=== PATIENT | male | born 1935 | race Caucasian/White ===

== ENCOUNTER 2017-01-18 22:53 | Inpatient (IN) | payer MEDICARE, OTHER ==
[~2017-01-18] VITALS: Ht 172.7 cm; Wt 99.0 kg
[~2017-01-18 22:53] MED LIST: AMLO10TA3 PO; ASPI-973 PO; CHOL200047 PO; CLON0.1T PO; EPLE25TA3 PO; FURO40TA4 PO; GLPZ5T PO; KEN1C EXT; LIP40 PO; PRAZ2CAP2 PO; SLO64 PO; ZOLP12.52 PO
[2017-01-18 23:20] VITALS: BP 224/102; PULSE 75; RESP 16; O2SAT 98
--- NOTE | 2017-01-18 23:32 | ED.REPORT ---
HPI-General Illness Date of Service Jan 18, 2017 ED Provider: Dr. Erick Tavera MD A 81 year old male with a history of hypertension, diabetes mellitus and stage III renal failure presents to the ED following a hypertensive episode that began just prior to arrival. Initial BP upon arrival to the ED is 224/102. Patient is asymptomatic except for mild blurry vision. Patient was recently admitted for a tooth extraction at the [facility] and his BP was markedly elevated O stopped, but stabilized prior to discharge. Patient took 25 mg of labetalol (2x regular dose) and clonidine this evening. He denies any diplopia, chest pain, SOB, nausea, diaphoresis or numbness/tingling. Nursing Notes Stated Complaint: HIGH BLOOD PRESSURE Chief Complaint: General Complaint Nursing Notes Reviewed: Yes Allergies: Coded Allergies: morphine (Verified Allergy, Severe, Nausea,Vomiting,Diarrhea, 04/07/13) Opioids - Morphine Analogues (Verified Allergy, Intermediate, Nausea, Vomiting,Diarrhea, 01/18/17) latex (Verified Allergy, Intermediate, skin burning from latex bandaids, ) TAPE (Verified Adverse Reaction, Unknown, 04/14/14) Scheduled Amlodipine (Amlodipine) 10 Mg Tablet 10 MG PO DAILY Amoxicillin (Amoxicillin) 500 Mg Tablet 500 MG PO TID Aspirin (Aspirin) 81 Mg Tablet 81 MG PO HS Atorvastatin (Lipitor) 40 Mg Tablet 40 MG PO HS Cholecalciferol (Vitamin D3) (Vitamin D3) 2,000 Unit Capsule 2,000 UNIT PO DAILY Clonidine (Clonidine) 0.1 Mg Tablet 0.1 MG PO BID Eplerenone (Eplerenone) 25 Mg Tablet 25 MG PO BID Furosemide (Furosemide) 40 Mg Tablet 40 MG PO DAILY Glipizide (Glipizide) 5 Mg Tablet 5 MG PO BID Magnesium Chloride (Slow-Mag) 64 Mg Tablet 64 MG PO DAILY Prazosin (Prazosin) 2 Mg Capsule 6 MG PO BID Triamcinolone Acet (Triamcinolone Acetonide Cream) 1 Applic/0.25 Gm Cr 1 APPLIC EXT BID Scheduled PRN Zolpidem ER (Ambien CR) 12.5 Mg Tab.mphase 5 MG PO HS PRN PRN For Insomnia Miscellaneous Medications Calcitriol (Rocaltrol) 0.25 Mcg Capsule Carvedilol (Carvedilol) 25 Mg Tablet Lisinopril (Lisinopril) 20 Mg Tablet General Time Seen by MD: 23:31 Chief Complaint Other (Hypertensive Episode) Hx Obtained From: Patient Arrived By: Walk-in Sudden in Onset?: No Onset Occurred: Just prior to arrival Symptom Duration: Since onset Associated with: Reports: Vision change, Denies: Chest pain, Diaphoresis, Nausea, Shortness of breath Pertinent Negative: Pt denies other symptoms Recent Healthcare: No recent doctor visit, No recent hospitalization Past Medical History Past Medical History 1. Hypertension 2. Diabetes mellitus 3. Stage III renal failure Past Surgical History 1. CABG 2. Orthopedic surgery 3. Pacemaker Smoking History Former Smoker Social History Other Social History: Good social support, , Local resident Ambulatory Status Independent Review of Systems + hypertension Full Review of Systems Eyes: Reports: Blurred bilateral, Denies: Diplopia Respiratory: Denies: Shortness of breath Cardiovascular: Denies: Chest pain GI: Denies: Nausea Skin: Denies Diaphoresis Neurologic: Denies: Numbness Complete sys rev & neg: except as marked. Physical Exam Vital Signs Vital Signs Date Time Temp Pulse Resp B/P Pulse Ox O2 Delivery O2 Flow Rate FiO2 01/19/17 02:26 36.7 61 15 181/62 98 Room Air 01/19/17 01:01 68 16 190/66 97 Room Air 01/18/17 23:20 36.6 75 16 224/102 98 Room Air Initial VS: Reviewed Neck: Supple, Non-tender, Full range of motion Extremities: Vascular intact, Neuro intact, No swelling, No tenderness Skin: Warm, Dry, No cyanosis Neurologic: Alert, Oriented, Nonfocal Psychiatric: Mood/affect normal, Behavior normal, Normal thought content General/Constitutional: Awake, Alert Behavior: Positive: Anxious Head / Eyes: Atraumatic, Normocephalic, PERRL Respiratory / Chest: Atraumatic, Breath sounds NL, Breath sounds = bilat, No respiratory distress Cardiovascular: Heart rate NL, Regular rhythm, Heart sounds NL Hypertensive (systolic 200's) Abdomen: Atraumatic, Soft, Non-tender Interpretation & Diagnostics Lab Results Interpretation Result Diagram: 01/19/17 0500 01/19/17 0015 Test 01/19/17 00:15 Prothrombin Time 10.6sec (8.1-12.5) Prothromb Time International Ratio 0.99ratio Activated Partial Thromboplast Time 25.6sec (22.8-33.0) Magnesium Level 2.2mg/dL (1.6-2.6) Pro-B-Type Natriuretic Peptide 5431pg/mL (0-486) Thyroid Stimulating Hormone (TSH) 1.770uIU/mL (0.450-4.500) Free Thyroxine 1.61ng/dL (0.82-1.77) ECG Interpretation ECG Interpretation: Sinus Rhythm Rate 61 New flipped T waves laterally - changed from 11/29/15 Inferior infarct Lateral leads involved Time: 00:31 Interpreted by: ED physician X-Ray Chest Interpretation Chest Xray Interpretation: No acute abnormalities Interpretation / Wet Read by: Wet read ED physician Re-Eval/Medical Decision Med Decision/Clinical Course 81-year-old presents with hypertension, essentially asymptomatic. He denies chest pain shortness of breath or any other cardiac type symptoms. However, his blood pressures persistently been over 210, and a workup to evaluate for end organ issues reveals elevated troponin. This is distinctly out of proportion to his moderate elevation of creatinine. No other evidence of end organ damage noted, but need to admit for trending of his troponin, echocardiography this morning to evaluate for wall motion abnormalities, and continued efforts to control his blood pressure. Additional clonidine and observation here as resulted in improvement in his blood pressure. He was also given Nitropaste for presumptive cardiac ischemia, and aspirin. Time of Eval: 00:20 Patient Status: Condition unchanged Re-Evaluation/Progress Note: Patient is re-evaluated. His BP is 226/70 upon recheck. He is informed of his results and diagnosis. Time of Eval: 02:05 Patient Status: Condition improved Re-Evaluation/Progress Note: Patient is informed of the plan to admit. All questions about the intended treatment plan are addressed. Consultation : Referral / Consult Name: Natanael Koo MD Consulted With: Hospitalist Call Returned at: 02:34 Film Reader: Will see patient, Agrees with eval, Agrees with plan, Accepts admit Counseled Regarding: Diagnosis, Lab results, Need for admission Discharge & Departure Primary Impression: Non-STEMI (non-ST elevated myocardial infarction) Additional Impression: Hypertensive emergency Disposition: ADMITTED TO HOSPITAL Discharge Condition All VS Reviewed: Yes Condition: Stable Referrals: Alexis Godoy MD (PCP) Scribe Attestation Portions of this note were transcribed by Tl Escalante. IDr. Tavera personally performed the history, physical exam and medical decision-making; I reviewed and confirmed the accuracy of the information in the transcribed note. copies to: Alexis Godoy MD, Christopher W MD Jan 18, 2017 23:32 TL ESCALANTE Jan 18, 2017 23:39 Troponin T 0.101ug/L (0.0-0.011) Pro-B-Type Natriuretic Peptide 5431pg/mL (0-486) Total Protein 6.5g/dL (6.4-8.4) Albumin 4.0g/dL (3.4-5.0) ECG Interpretation ECG Interpretation: Sinus Rhythm Rate 61 New flipped T waves laterally - changed from 16 Inferior infarct Lateral leads involved Time: 00:31 Interpreted by: ED physician X-Ray Chest Interpretation Chest Xray Interpretation: No acute abnormalities Interpretation / Wet Read by: Wet read ED physician Re-Eval/Medical Decision Time of Eval: 00:20 Patient Status: Condition unchanged Re-Evaluation/Progress Note: Patient is re-evaluated. His BP is 226/70 upon recheck. He is informed of his results and diagnosis. Time of Eval: 02:05 Patient Status: Condition improved Re-Evaluation/Progress Note: Patient is informed of the plan to admit. All questions about the intended treatment plan are addressed. Consultation : Referral / Consult Name: Natanael Koo MD Consulted With: Hospitalist Call Returned at: 02:34 Film Reader: Will see patient, Agrees with eval, Agrees with plan, Accepts admit Counseled Regarding: Diagnosis, Lab results, Need for admission Discharge & Departure Primary Impression: Non-STEMI (non-ST elevated myocardial infarction) Additional Impression: Hypertensive emergency Disposition: ADMITTED TO HOSPITAL Discharge Condition All VS Reviewed: Yes Condition: Stable Referrals: Alexis Godoy MD (PCP) Scribe Attestation Portions of this note were transcribed by Tl Escalante. I, Dr. Tavera personally performed the history, physical exam and medical decision-making; I reviewed and confirmed the accuracy of the information in the transcribed note. copies to: Alexis Godoy MD, Christopher W MD Jan 18, 2017 23:32 TL ESCALANTE Jan 18, 2017 23:39
[2017-01-19] VITALS (16 sets, daily range): BP systolic 153–235; BP diastolic 45–92; PULSE 60–91; RESP 15–18; O2SAT 95–98
[2017-01-19 00:24] LABS: BASOPHILS % (AUTO) 0.2 % (0-3); Mean Corpuscular Volume 90.2 fL (81-100)
[2017-01-19 00:52] LABS: INR 0.99 ratio
[2017-01-19 00:55] LABS: EOSINOPHILS % (AUTO) 2.3 % (0-5); MONOCYTES % (AUTO) 8.9 % (4-12); Mean Corpuscular Hemoglobin 32.9 pg (27.0-35.0); NEUTROPHILS % (AUTO) 65.8 % (40-74); Platelet Count 204 bil/L (150-400)
[2017-01-19 01:14] LABS: Magnesium 2.2 mg/dL (1.6-2.6); TROPONIN T 0.101 ug/L (0.0-0.011)
[2017-01-19] MEDS ORDERED: Nitroglycerin 2% 1 Gm Ointment TOPICAL SCH (02:00)
[2017-01-19] MEDS ORDERED: Alum-Mag Hydrox-Simeth 30 mL Suspension PO PRN ×2 (03:00)
[2017-01-19] MEDS ORDERED: Polyethylene Glycol (PEG) 17 Gm Powder PO PRN (03:00)
[2017-01-19] MEDS ORDERED: Ondansetron 2 mg/mL 2 mL Inj IVPUSH PRN ×2 (03:00)
[2017-01-19] MEDS ORDERED: Lactated Ringer's 1,000 ML IV SCH (03:00)
[2017-01-19] MEDS ORDERED: AMOX500T2 PO (04:00)
[2017-01-19] MEDS ORDERED: CALC0.257 ORAL (04:00)
[2017-01-19] MEDS ORDERED: LISI-567 (04:00)
[2017-01-19] MEDS ORDERED: CARV25TA2 ORAL (04:00)
[2017-01-19] MEDS ORDERED: Glucose 40% Oral Gel 15 Gm Tube PO PRN (04:15)
[2017-01-19] MEDS ORDERED: Labetalol 5 mg/mL 4 mL Inj IVPUSH ONE (04:50)
--- NOTE | 2017-01-19 05:02 | PCM.HPMED ---
Subjective Date of Service Jan 19, 2017 Primary Provider: Admitting Physician: Natanael Koo MD Primary Care Physician: Alexis Godoy MD Attending Physician: Natanael Koo MD Chief Complaint: Patient is a 81-year-old male with a medical history significant for diabetes type II, hypertension, CAD status post CABG, sick sinus syndrome with dual- chamber pacemaker, diastolic heart failure stage II, and chronic kidney disease stage III presents with elevated blood pressure. History of Present Illness: Per patient, reports asymptomatic with blood pressure in the 220s/100s yesterday morning and continue elevated in the ED. He had visited urgent care this morning which advised him to take an extra dose of 12.5 mg carvedilol and sent home. However due to continue elevated systolic blood pressure, patient decided to visit the ED. Patient denies any chest pain, dizziness, lightheadedness, shortness of breath, or nausea/vomiting. He further denies any unilateral weakness. Patient denies medication noncompliance, he religiously takes his medication as scheduled. No change in diet. Most recently, he had dental implant on 01/16/2017 required general sedation. Patient states that he has adverse reaction to general anesthesia. He was placed in the medical ICU in the [facility] overnight for uncontrolled hypertension. Blood pressure since last Friday began to slowly increase. Patient reports having similar hypertensive episode in the past with every surgery under anesthesiology. Patient believes that he has significant adverse reaction to the anesthesia given. In the ED, blood pressure was measured to 124/102. CBC remarkable only for hemoglobin and hematocrit 12.4/34 stable chronic, CMP remarkable for BUN/ creatinine 46/2.54, baseline creatinine is 2.3-2.4. Troponin T 0.101 elevated. Patient was given Nitro-Bid in addition to clonidine 0.2 mg. Review of Systems: A comprehensive review of systems was conducted with the patient and found to be negative except as above in the History of Present Illness. Allergies Coded Allergies: morphine (Verified Allergy, Severe, Nausea,Vomiting,Diarrhea, 04/07/13) Opioids - Morphine Analogues (Verified Allergy, Intermediate, Nausea, Vomiting,Diarrhea, 01/18/17) latex (Verified Allergy, Intermediate, skin burning from latex bandaids, ) TAPE (Verified Adverse Reaction, Unknown, 04/14/14) Home Medications Per chart, will need to verify by reconciliation nurse Amoxicillin 500 mg by mouth 3 times a day Aspirin 81 mg daily Lipitor 40 mg nightly Calcitrol 0.25 MCG daily Carvedilol 12.5 mg twice a day Vitamin D3 2000 units daily Clonidine 0.1 mg twice a day Furosemide 40 mg daily Glipizide 5 mg twice a day right ear Lisinopril 20 mg daily Magnesium chloride 64 mg daily prazosin 4 mg twice a day Ambien 5 mg nightly when necessary PMH Dyslipidemia Diabetes type II Uncontrolled hypertension Diastolic heart failure stage II History of stroke History of coronary artery disease status post CABG Chronic kidney disease stage 3 Sick sinus syndrome status post dual-chamber pacemaker History of congestive heart failure Peripheral vascular disease Coronary artery disease status post stenting History of atrial fibrillation postop Prasad GERD nerve palsy left eye Surgical History Laminectomy L3-L4 Right knee surgery Right rotator cuff surgery Dual-chamber pacemaker implantation CABG 3 Family History Father with depression Mother with multiple sclerosis Sibling with strokes Social History Hx Alcohol Use: Yes (rare occassion) Hx Substance Use: No Hx Tobacco Use: Yes Smoking Status: Former Smoker Exam Vital Signs Vital Sign - Last Date Time Temp Pulse Resp B/P Pulse Ox O2 Delivery O2 Flow Rate FiO2 01/19/17 03:09 36.7 60 15 193/60 97 Room Air Exam General: No acute distress, appropriately interactive HEENT: Normocephalic, atraumatic. PERRLA, Anicteric sclerae, moist conjunctivae. Neck: No JVD, No bruits. No lymphadenopathy or thyromegaly. Cardiovascular: Regular rate and rhythm with no murmurs, rubs, or gallops appreciated Pulmonary: b/l air sound with no crackles, wheezes, or rhonchi. no use of accessory muscles. Abdomen: +Bowel sound, Soft, nontender, nondistended. Extremities: No clubbing or cyanosis, no lymphedema, no b/l lower leg edema Skin: Normal temperature, turgor, and texture; no rash. No visualized skin ulcer. Neurological: CN II-VII grossly intact, moving equally on all 4 extremities Psychiatric: Normal mood and affect. AOx3 Lab and Diagnostics Result Diagram: 01/19/171401/19/1714 Assessment & Plan Patient is a 81-year-old male with a medical history significant for diabetes type II, hypertension, 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 Hypertensive emergency - Clonidine 0.2 mg and Nitropaste given by ED - Restart home carvedilol, clonidine, prazosin, holding lisinopril - Goal maintain SBP 155-165 mmHg within the first 8 hours Elevated troponin of unknown significance - T wave inversion noted, Troponin T 1.01 - Possible and NSTEMI due to severe hypertension - Trending troponin - Echocardiogram ordered ED - Continue carvedilol, ASA 81 mg, and atorvastatin Chronic kidney disease - Baseline creatinine ~2.3 - UA ordered - Holding lisinopril as GFR 26 Chronic condition Diabetes type II [id number] - A1c ordered - Low sliding scale Insulin lispro Dyslipidemia - Restart atorvastatin - Lipid panel ordered Normocytic anemia - Stool guaiac ordered History of dental implant - Recently went through oral surgery - Placed on amoxicillin day 4 , presumably prophylaxis CODE STATUS: Full code DVT prophylaxis: Heparin Antinausea medication when necessary Bowel regimen when necessary Patient Status: Patient is admitted under inpatient status with expected length of stay GREATER than 2 midnights due to severity of presenting symptoms, risk of adverse event, and complexity of treatment plan. GI Prophylaxis: Not indicated VTE Prophylaxis: Sub-Q Enoxaparin Resuscitation Status: CPR: Attempt Resuscitation Attending Statement The patient was seen and examined together with Dr. Aguilar on 01/19 and I agree with the history, exam and plan as outlined in the note above. Roberto Aguilar DO Jan 19, 2017 03:21 Natanael Koo MD Jan 19, 2017 19:57
[2017-01-19 05:03] LABS: BASOPHILS % (AUTO) 0.4 % (0-3); EOSINOPHILS % (AUTO) 3.1 % (0-5); MONOCYTES % (AUTO) 9.1 % (4-12); Mean Corpuscular Hemoglobin 32.6 pg (27.0-35.0); Mean Corpuscular Volume 90.3 fL (81-100); NEUTROPHILS % (AUTO) 58.3 % (40-74); Platelet Count 189 bil/L (150-400)
--- NOTE | 2017-01-19 05:24 | NUR ---
Admit Patient admitted to [facility] 2018 at 0315. Patient denies chest pain and shortness of breath. Placed on telemetry: 100% a-paced. Dr. Aguilar to bedside to assess patient; goal BP around 170 systolic. Admit documentation and med reconciliation completed.
[2017-01-19 05:43] LABS: APPEARANCE,URINE CLEAR (CLEAR,HAZY); COLOR,URINE YELLOW (YELLOW); OCCULT BLOOD,URINE SMALL (NEGATIVE); UROBILINOGEN,URINE NORMAL (NORMAL)
--- NOTE | 2017-01-19 07:42 | DRSVH ---
PROCEDURE: X-RAY CHEST ONE VIEW, PORTABLE ([id number]) INDICATIONS: 81-year-old male with hypertension. TECHNIQUE: One view of the chest was acquired. COMPARISON: [facility], CR, CHEST 1 VIEW, 04/11/2016, 16:13. [facility], CR, XR CH EST 2VW, 11/29/2015, 7:07. [facility], CR, XR CHEST 1VW (PORTABLE), 11/28/2015, 13:57. FINDINGS: Surgical changes and devices: Left chest wall pacemaker is again noted. Patient is status post shahid ry artery bypass grafting. Lungs and pleura: No pleural effusions or pneumothorax. Lungs are clear. Mediastinum: Mediastinal contours appear normal. Heart size is normal. There is aortic atheroscler osis. Bones and chest wall: No suspicious bony lesions. Overlying soft tissues appear unremarkable. IMPRESSION: No acute cardiopulmonary disease. Dictated by: Werner Hall M.D. on 01/19/2017 at 7:39 Approved by: Werner Hall M.D. on 01/19/2017 at 7:40
[2017-01-19] MEDS: Insulin LISPRO 300 Unit/3 mL Inj SUBQ SCH ×4 (08:00→21:31)
[2017-01-19] MEDS: cloNIDine 0.1 mg Tablet PO SCH ×2 (09:59→20:39)
[2017-01-19] MEDS: Heparin 5,000 Unit/mL Inj SUBQ SCH ×2 (09:59→17:58)
[2017-01-19] MEDS ORDERED: ACET500C49 PO (11:00)
--- NOTE | 2017-01-19 14:47 | NUR ---
Social Work: Assessment D&A: See initial assessment. FUEL DISTRIBUTION SYSTEM OPERATOR reviewed EMR, which states pt is at [facility] with a hypertensive emergency and elevated trop. Pt primary insurance is Medicare with a Blue Cross Blue Shield supplement and / [employer] supplement, per pt. Pt PCP is Alexis Godoy MD. Readmit risk score is not available. Pt prefers to remain at [facility] for this admission and declines FUEL DISTRIBUTION SYSTEM OPERATOR [facility] of [facility]. FUEL DISTRIBUTION SYSTEM OPERATOR met with the pt and at bedside and explained FUEL DISTRIBUTION SYSTEM OPERATOR role. Pt reports that he resides at home with his in a two-story home with an elevator. Pt's , Adelita ([phone]) assists pt with ADL's. Pt reports that his primary contact and DPOA is Adelita, though he cannot locate the requisite paperwork; FUEL DISTRIBUTION SYSTEM OPERATOR provided pt with these documents to complete. Pt drives POV; he currently utilizes a walker and a motorized scooter. Pt reports hx with [facility] and [facility] he does not anticipate needing wither of these at d/c Pt does not utilize any community services at this time. Pt's family to provide transport home at discharge. No SW needs apparent; FUEL DISTRIBUTION SYSTEM OPERATOR will continue to follow. P: Pt is likely to discharge home with family via POV. MIRIAM Vazquez Addendum: 01/19/17 at 1453 by NISSA HANEY SS Amended: Links added.
--- NOTE | 2017-01-19 15:27 | NUR ---
Multidisciplinary Communication [id number] - Discussed his care with Dr. Cummings, Dr. Scott, and the rest of the multidisciplinary care team during morning rounds. Asked if he needed to be on an NPO diet as that is what was ordered. Dr. Scott said that he could eat a heart health/ADA diet. Also, asked if his one time dose of Labetalol could be changed to prn. The MDs said they would look into it. 1100 - Dr. Scott and Dr. Cummings came in the room to assess the patient. Noted that his Medication Rec. was incorrect. It was corrected via patient interview and medication list. The one medication that was not added was a mouth wash he has been using since his oral surgery for which he could not remember the name. His family will bring it it for him so that it can be added to his med. rec. and given to him . [id number] - Paged Dr. Scott who called back and was informed that the medication rec. was completed. Informed him that the family was asking if he would have any more troponin lab draws. Told him that none had been ordered after 0500 today. He said he would order a troponin lab draw which was obtained this afternoon. Care continues. Addendum: 01/19/17 at 1935 by SHANI CLAROS RN [id number] - Paged Dr. Scott about his troponin being 0.089. He went and talked to the family a couple hours later to discuss his troponin levels. Care continues.
--- NOTE | 2017-01-19 16:34 | PCM.PNMED ---
Subjective Date of Service Jan 19, 2017 Subjective 81-year-old man with coronary disease, hypertension and type II diabetes mellitus presents with acute uncontrolled hypertension. Patient states he feels at baseline today. He reports that blood pressure rises uncontrollably every time he has a surgical or medical procedure. He was observed for 24 hours after his dental procedure and discharge with good blood pressure but recurrence 1 day later unexplained. No symptoms of headache diplopia, dyspnea, chest pain or confusion. Family at bedside concerned about his troponins. Exam Vital Signs Vital Sign - Last Date Time Temp Pulse Resp B/P Pulse Ox O2 Delivery O2 Flow Rate FiO2 01/19/17 13:17 36.9 72 18 159/45 96 Room Air Intake and Output 01/18/17 01/18/17 01/19/17 Cumulative From/Thru 15:00 23:00 07:00 01/19/17 04:38 - 01/19/17 05:39 Intake Total 100 ml 100 ml Output Total 500 ml 500 ml Balance -400 ml -400 ml Intake Oral 100 ml 100 ml Output Urine Total 500 ml 500 ml # Bowel Movements 0 0 Exam General: Mildly obese elderly man in no acute distress HEENT: sclerae anicteric, oral mucosa moist Neck: no JVD Chest: clear to auscultation Cardiac: S1S2, regular, no murmur Abdomen: BS normal, non-tender Extremities: no edema Neuro: A&O, cranial nerves symmetric, motor strength 5/5, coordination normal IVs and Medications Medications Reviewed: Medications were reviewed in detail Lab and Diagnostics Result Diagram: 01/19/17 0500 01/19/17 0500 Assessment & Plan Patient is a 81-year-old male with a medical history significant for diabetes type II, hypertension, 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 Acute active problems: Hypertensive emergency, acute present on admission. Blood pressure medications have been recently adjusted by both learning center coordinator and business services specialist sales. We will try to avoid significant further changes. - Restart home carvedilol, clonidine, prazosin, holding lisinopril - Goal maintain SBP 155-165 mmHg within the first 8 hours Elevated troponin of unknown significance. Temporal sequence does not suggest acute myocardial ischemia. Likely effective renal failure with some amount of demand ischemia from acute hypertension. T wave inversion noted on EKG, Troponins T 0.10, 0.086, 0.089. - Echocardiogram pending - Continue carvedilol, ASA 81 mg, and atorvastatin - Repeat EKG in a.m. Chronic kidney disease - Baseline creatinine ~2.3 - UA ordered - Holding lisinopril as GFR 26 Chronic condition Diabetes type II [id number] - A1c ordered - Low sliding scale Insulin lispro Dyslipidemia - Restart atorvastatin - Lipid panel ordered Normocytic anemia - Stool guaiac ordered History of dental implant - Recently went through oral surgery - Continue on previously prescribed amoxicillin day CODE STATUS: Full code DVT prophylaxis: Heparin Antinausea medication when necessary Bowel regimen when necessary Patient Status: Patient is admitted under inpatient status with expected length of stay GREATER than 2 midnights due to severity of presenting symptoms, risk of adverse event, and complexity of treatment plan. GI Prophylaxis: Not indicated VTE Prophylaxis: Sub-Q Enoxaparin Resuscitation Status: CPR: Attempt Resuscitation Time spent 35 minutes Butch Scott MD Jan 19, 2017 15:09
[2017-01-19] MEDS ORDERED: CHLO118L3 ORAL (17:55)
[2017-01-19] MEDS ORDERED: KTC2C15 TP (18:05)
[2017-01-19] MEDS ORDERED: CLOT60CR TOPICAL (18:05)
--- NOTE | 2017-01-19 18:12 | DRSVH ---
[facility] [address] [place] [address] Echocardiogram Report Name: VLAD ZALDIVAR LStudy Date: 01/19/2017 Height: 68 in Hospital Exam Location: [facility] Weight: 227 lb Gender: Male BSA: 2.2 m2 : 1935 Age: 81 yrs BP: 179/87 mmHg Reason For Study: Possible ND Ordering Physician: Performed By: Delaney Otto Referring Physician: Stephanie Godoy Interpretation Summary The left ventricle is normal in size. There is moderate concentric left ventricular hypertrophy. There are no focal wall motion abnormalities. The ejection fraction is estimated to be 70-75%. There is a pacemaker lead in the right ventricle. The right ventricular systolic pressure is estimated at 29 mmHg assuming a right atrial pressure of 3 mm Hg. No other echocardiographic abnormalities seen. Compared to the prior echo report on 02/20/2016, there is no significant change. Procedure: A two-dimensional transthoracic echocardiogram with color flow and Doppler was performed. Comparison is made with the echocardiogram of 02/20/2016. The study quality was technically adequate. The patient was in normal sinus rhythm during the exam. Left Ventricle: Proximal septal thickening is noted. Left ventricular wall thickness is mild-moderately increased. The left ventricle is normal in size. There is moderate concentric left ventricular hypertrophy. Left ventricular systolic function is normal. The ejection fraction is estimated to be 70-75%. There are no focal wall motion abnormalities. Right Ventricle: There is a pacemaker lead in the right ventricle. The right ventricle is normal in size and function. Atria: The left atrium is moderately dilated. Right atrial size is normal. There is no Doppler evidence for an interatrial shunt. Mitral Valve: The mitral valve is normal in structure and function. There is mild mitral regurgitation. Aortic Valve: The aortic valve opens well. The aortic valve is slightly calcified. There is mild aortic valve sclerosis. There is trace aortic regurgitation. Tricuspid Valve: The tricuspid valve is normal in structure and function. There is a trace or physiologic amount of tricuspid regurgitation. The right ventricular systolic pressure is estimated at 29 mmHg assuming a right atrial pressure of 3 mm Hg. Pulmonic Valve: The pulmonic valve is normal in structure and function. There is a trace or physiologic amount of pulmonic regurgitation. Great Vessels: The aortic root is at the upper limits of normal in size. The ascending aorta is mildly enlarged. The aortic arch is normal in size. The IVC is of normal diameter and collapses greater than 50% with a sniff. This suggests a low right atrial pressure of 3 mm Hg. Pericardium/ Pleura There is no pericardial effusion. There is no pleural effusion. MMode/2D Measurements & Calculations LVIDd: 4.5 cm RA long axis LVOT diam: 2.4 cm LVIDs: 3.1 cm LA A2 area: 26.1 cm Ao root diam FS: 32.0 % LA A4 area: 23.8 cm RA area EPSS: 0.88 cm LA length (vol) Aortic Jxn: 3.0 cm IVSd: 1.3 cm : 16.8 cm asc Aorta Diam LVPWd: 1.3 cm LA vol: 94.3 ml RA vol LA vol index : 48.7 ml Ao Arch Diam (Prox RA Trans): 2.9 cm : 22.6 mm2 IVC diam: 1.6 cm LV luong. diameter/BSA LV sys. diameter/BSA RVD1 (basal) TAPSE: 1.4 cm (cm/m^2): 2.1 (cm/m^2): 1.4 Doppler Measurements & Calculations Ao V2 max MV E max smooth MV E/A: 1.0 TR max smooth : 177.7 cm/sec : 85.9 cm/sec Med Peak E' Smooth : 252.4 cm/sec Ao max PG MV A max smooth TR max PG : 12.6 mmHg : 82.8 cm/sec E/E' med: 17.0 : 25.5 mmHg Ao mean PG MV P1/2t: 56.9 msec Lat Peak E' Smooth PA V2 max : 92.7 cm/sec LVOT Max Smooth E/E' lat: 8.8 PA mean PG : 85.3 cm/sec E/e' average PA Accel Time MADDIE(I,D): 2.5 cm : 0.10 sec sev ratio: 0.55 AI P1/2t : 440.8 msec AI dec slope : 269.1 cm/s2c MV dec time MV P1/2t max smooth Ao V2 mean LV V1 max PG : 0.19 sec : 126.4 cm/sec MVA(P1/2t): 3.9 cm2 Ao V2 VTI: 41.9 cmLV V1 VTI MADDIE(V,D): 2.2 cm2 : 23.2 cm PA V2 mean MADDIE indexed to BSA : 59.5 cm/sec (cm^2/m^2): 1.2 Reading Physician:06:11 PM
[2017-01-19] MEDS: Labetalol 5 mg/mL 4 mL Inj IVPUSH PRN ×2 (21:15→21:26)
[2017-01-19] MEDS ORDERED: cloNIDine 0.1 mg Tablet PO ONE ×2 (21:45→23:40)
--- NOTE | 2017-01-19 22:44 | NUR ---
HTN: pt's blood pressure elevated at 241/101, hospitalist Dr. Briones notified, pt. given evening meds, iv labetolol tried, 10mg, repeated with 10mg 15 min later, bp was 235/92, 232/83, 231/85, 217/79. hospitalist ordered one time dose of 0.2mg clonidine, will reassess, pt. asymptomatic. Addendum: 01/20/17 at 0351 by RONALD GLEASON RN bp slowly coming down after clonidine, now 214/72
[2017-01-20] VITALS (13 sets, daily range): BP systolic 179–241; BP diastolic 72–87; PULSE 58–74; RESP 16; O2SAT 95–98
[2017-01-20] MEDS: Heparin 5,000 Unit/mL Inj SUBQ SCH ×3 (00:03→17:06)
[2017-01-20] MEDS ORDERED: cloNIDine 0.1 mg Tablet PO ONE (01:55)
[2017-01-20] MEDS ORDERED: LORazepam 0.5 mg Tablet PO ONE (01:55)
[2017-01-20] MEDS: cloNIDine 0.1 mg Tablet PO SCH ×2 (08:28→20:20)
[2017-01-20] MEDS: Insulin LISPRO 300 Unit/3 mL Inj SUBQ SCH ×4 (08:31→21:38)
--- NOTE | 2017-01-20 16:14 | PCM.PNMED ---
Subjective Date of Service Jan 20, 2017 Subjective 81-year-old man with coronary disease, hypertension and type II diabetes mellitus presents with acute uncontrolled hypertension. Feels generally well. Mild headache. Very poor sleep due to frequent interruptions for blood pressure monitoring last night. No chest pain or dyspnea. 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 Exam Vital Signs Vital Sign - Last Date Time Temp Pulse Resp B/P Pulse Ox O2 Delivery O2 Flow Rate FiO2 01/20/17 12:31 36.6 61 16 181/73 95 Room Air Intake and Output 01/19/17 01/19/17 01/20/17 Cumulative From/Thru 15:00 23:00 07:00 01/19/17 04:38 - 01/20/17 05:16 Intake Total 450 ml 550 ml Output Total 1925 ml 2425 ml Balance -1475 ml -1875 ml Intake Oral 450 ml 550 ml Output Urine Total 1925 ml 2425 ml # Bowel Movements 0 Exam General: Mildly obese elderly man in no acute distress HEENT: sclerae anicteric, oral mucosa moist Neck: no JVD Chest: clear to auscultation Cardiac: S1S2, regular, no murmur Abdomen: BS normal, non-tender; episodic right upper quadrant abdominal wall twitching Extremities: no edema Neuro: A&O, cranial nerves symmetric, motor strength 5/5, coordination clifford Lab and Diagnostics Result Diagram: 01/19/17 0500 01/19/17 0500 Assessment & Plan Patient is a 81-year-old male with a medical history significant for diabetes type II, hypertension, 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 Acute active problems: # Hypertensive emergency, acute present on admission. Blood pressure medications have been recently adjusted by both donor relations officer and mapping technician. Had recurrent severe hypertension despite continuing his prior medications. Recently treated with amlodipine but it was discontinued. He has not been on lisinopril due to concerns about his chronic kidney disease. - Resumed home carvedilol 25 mg twice a day, clonidine 0.2 mg twice a day, prazosin, - Add amlodipine, and lisinopril - Goal maintain SBP 165 mmHg # Elevated troponin of unknown significance. Temporal sequence does not suggest acute myocardial ischemia. Likely effective renal failure with some amount of demand ischemia from acute hypertension. T wave inversion noted on EKG, Troponins T 0.10, 0.086, 0.089. LVEF 70%, no focal akinesis - Continue carvedilol, ASA 81 mg, and atorvastatin #Chronic kidney disease - Baseline creatinine ~2.3 - UA ordered -Repeat BMP in a.m. Chronic condition Diabetes type II [id number] - A1c ordered - Low sliding scale Insulin lispro Dyslipidemia - Restart atorvastatin - Lipid panel ordered Normocytic anemia - Stool guaiac ordered History of dental implant - Recently went through oral surgery - Continue on previously prescribed amoxicillin day CODE STATUS: Full code DVT prophylaxis: Heparin Antinausea medication when necessary Bowel regimen when necessary Patient Status: Anticipate discharge to home 01/21 with blood pressure under control with reasonable oral regimen GI Prophylaxis: Not indicated VTE Prophylaxis: Sub-Q Enoxaparin Resuscitation Status: CPR: Attempt Resuscitation Time spent 35 minutes Butch Scott MD Jan 20, 2017 16:14
--- NOTE | 2017-01-20 19:20 | NUR ---
Hypertension 818 - Called Dr. Scott per his request and let him know that the patient's blood pressure was 204/87 before his morning medication. 929 - Discussed his care with Dr. Scott, Dr. Cummings, and the rest of the multidisciplinary care team during morning rounds. Discussed his blood pressure, his abdominal muscle twitching, that the computer technical specialist noted he was not A-paced on his EKG this morning, and that he was requesting to speak to Dr. Wilson. 1099 - Notified Dr. Scott of his blood pressure of 190/73 after his morning medications. No new orders. 1712 - His blood pressure was in the 200s systolic. Called the Pharmacy to send up IV Labetalol. Gave him the one time dose of by mouth Lisinopril. 1830 - Paged Dr. Scott and notified him that his blood pressure was now 179/80s. He said to hold off from giving any IV Labetalol and that he would order some by mouth PRN medications. film processing shift supervisor notified. Care continues.
[2017-01-21] VITALS (9 sets, daily range): BP systolic 133–223; BP diastolic 63–84; PULSE 60–65; RESP 16–18; O2SAT 95–97
[2017-01-21] MEDS: Heparin 5,000 Unit/mL Inj SUBQ SCH ×2 (00:32→08:42)
--- NOTE | 2017-01-21 06:10 | NUR ---
P) Cardiac Pt.'s 419 BP was 205/79, given hydralizine PO, an hour later it was 196/68, was going to give labetelol IV but pt. stated he has had it previously this visit and it did not help, and he reacted to it with strange feeling sliding over his head. Pt. got up and voided in bathroom, returned and sat down and his blood pressure was 156/67 without any further treatment. I) Discussed possible correlation between pressure on kidneys and BP, pt. will discuss this with his DrRinku in the AM. E) Currently up in chair, cardiac rhythm A-paced in 60's, denies pain.
[2017-01-21] MEDS: Insulin LISPRO 300 Unit/3 mL Inj SUBQ SCH (08:39)
[2017-01-21] MEDS: cloNIDine 0.1 mg Tablet PO SCH (09:44)
[2017-01-21] MEDS ORDERED: Potassium Chloride 20 mEq SR Tablet PO ONE (11:20)
[2017-01-21] MEDS ORDERED: CARV25TA2 PO (11:21)
[2017-01-21] MEDS ORDERED: CLON0.2T PO (11:21)
[2017-01-21] MEDS ORDERED: AMLO10TA3 PO (11:21)
--- NOTE | 2017-01-21 11:25 | PCM.DIMED ---
Discharge Instructions Date of Service Jan 21, 2017 Dates of Hospitalization Jan 19, 2017 at 02:44 Discharge Diagnosis Discharge Diagnosis Accelerated hypertension; Chronic kidney disease; Troponin elevated; Diabetes mellitus, type II. Medication Instructions Additional med instructions Medications have been adjusted as specified in the medication list. Prescription for amlodipine is sent to your [facility] pharmacy. You have indicated that you have the higher doses of other medicines including clonidine , carvedilol, and lisinopril. Diet Discharge Diet: Diabetic, Other (reduce dietary sodium as much as possible) Activity Discharge Activity: No restrictions Call your provider Call your provider for: Other (excessive blood pressure) Patient Instructions Follow-up plan Follow-up with and the [place] clinic at previously scheduled appointments or as needed. Follow-up Provider: Jade Wilson MD Follow-up with PCP in: 2 weeks Provider: Ale Leal MD Follow-up in: 2 weeks Mid-level Provider (F9): Alexis Godoy MD Follow-up with Mid-level in: Other (as needed) Butch Scott MD Jan 21, 2017 11:25
--- NOTE | 2017-01-21 12:36 | NUR ---
Discharge 0855 - Paged Yellow Team Hospitalist about his blood pressure and medications. Some new hypertensive medications were ordered as well as some of his home doses increased. When taking his blood pressure while sitting he was 136/64. 0910 - Dr. Scott said to go a head and still give all of the ordered medications. 0950 - Discussed his care with Dr. Scott, Dr. Cummings, and the rest of the multidisciplinary care team during morning rounds. Discussed his potassium of 3.3 and notified them that the patient stated he had a bad reaction to Spironolactone. This medication had been one of the new ones ordered this morning. Dr. Scott acknowledged the potassium level and ordered a by mouth potassium replacement. He said to go ahead and hold the Spironolactone. 1236 - He discharged at this time. His IV was discontinued intact, his telemetry was discontinued, and his vitals were taken. Discussed and gave him the discharge paperwork (instructions, one prescriptions, and care notes). His questions were answered. He took all his belongings with him. He was transported via wheelchair by the [facility] to the outside of the hospital. He and his thanked staff for their care.
--- NOTE | 2017-01-21 13:00 | NUR ---
Discharge Patient discharged at 1236. His vital sign was BP 133/63, P 65, R 18, T 63.6 oxygen 97% RA. Patient denied having a pain. His peripheral IV removed intact. His medication prescription electronic sent to [facility] per patient preference and hard copy also given. Discharge teaching had been done answered his question. Patient was transferred by SENIOR TECHNICAL EDITOR in wheelchair to his car.
--- NOTE | 2017-01-21 16:24 | PCM.DC.MED ---
Discharge Summary Date of Service Jan 21, 2017 Dates of Hospitalization Date of Hospital Admission Jan 19, 2017 at 02:44 Date of Discharge: Jan 21, 2017 Providers: Admitting Physician: Natanael Koo MD Primary Care Physician: Alexis Godoy MD Attending Physician: Aleksandar Sellers MD Diagnosis at Time of Discharge Diagnosis at Time of Discharge Accelerated hypertension; Chronic kidney disease; Troponin elevated; Diabetes mellitus, type II. Brief History History of Present Illness (per admission note): Patient is a 81-year-old male with a medical history significant for diabetes type II, hypertension, CAD status post CABG, sick sinus syndrome with dual- chamber pacemaker, diastolic heart failure stage II, and chronic kidney disease stage III presents with elevated blood pressure. 4 days prior to admission he underwent dental procedure at [facility] and was observed one additional day due to elevated blood pressure. He was discharged home but notes 220s/100s yesterday morning. He had visited urgent care this morning which advised him to take an extra dose of 12.5 mg carvedilol and sent home. However due to continue elevated systolic blood pressure, patient decided to visit the ED. Patient denies any chest pain, dizziness, lightheadedness, shortness of breath, or nausea/vomiting. He further denies any unilateral weakness. Patient denies medication noncompliance, he religiously takes his medication as scheduled. No change in diet. Most recently, he had dental implant on 01/16/2017 required general sedation. Patient states that he has adverse reaction to general anesthesia. Blood pressure since last Friday began to slowly increase. Patient reports having similar hypertensive episode in the past with every surgery under anesthesiology. Patient believes that he has significant adverse reaction to the anesthesia given. Hospital Course # Hypertensive emergency, acute present on admission. Blood pressure medications have been recently adjusted by both wind field service manager and photovoltaic panel installer. Had recurrent severe hypertension despite continuing his prior medications. Recently treated with amlodipine but it was discontinued. He does not take clonidine on days when he is out of the house activities. He has not been on lisinopril recently, which he attributes to concerns about his chronic kidney disease. - Resumed home carvedilol 25 mg twice a day, clonidine 0.2 mg twice a day, continue prazosin, - Add amlodipine 10 mg daily - Resume lisinopril 20 mg daily - Blood pressure 135/65 prior to discharge # Elevated troponin of unknown significance. Temporal sequence 0.101, 0.086, 0.089, 0.084. Does not suggest acute myocardial ischemia. Likely effective renal failure with some amount of demand ischemia from acute hypertension. T wave inversion noted on EKG, Troponins T 0.10, 0.086, 0.089. LVEF 70%, no focal akinesis - Continue carvedilol, ASA 81 mg, and atorvastatin # Chronic kidney disease. Baseline creatinine ~2.3. Admitted with serum creatinine 2.5, declined to 2.2 prior to discharge - Resume lisinopril for CKD and hypertension # Diabetes type II [id number] - A1c 6.8% -No changes in management # Dyslipidemia - Restart atorvastatin # Normocytic anemia - Stool guaiac ordered but no stool output # History of dental implant - Recently went through oral surgery - Continue on previously prescribed amoxicillin # Episodic right upper quadrant abdominal wall twitching - monitor clinically . Exam Vital Signs (Last) Date Time Temp Pulse Resp B/P Pulse Ox O2 Delivery O2 Flow Rate FiO2 01/21/17 10:09 60 01/21/17 08:22 36.5 16 136/64 97 Room Air Exam General: Mildly obese elderly man in no acute distress HEENT: sclerae anicteric, oral mucosa moist Neck: no JVD Chest: clear to auscultation Cardiac: S1S2, regular, no murmur Abdomen: BS normal, non-tender; Extremities: no edema Neuro: A&O, cranial nerves symmetric, motor strength and coordination clifford Test 01/19/17 00:15 01/19/17 05:00 01/19/17 05:20 01/19/17 21:03 Prothrombin Time 10.6sec (8.1-12.5) Prothromb Time International Ratio 0.99ratio Activated Partial Thromboplast Time 25.6sec (22.8-33.0) Magnesium Level 2.2mg/dL (1.6-2.6) Pro-B-Type Natriuretic Peptide 5431pg/mL (0-486) Thyroid Stimulating Hormone (TSH) 1.770uIU/mL (0.450-4.500) Free Thyroxine 1.61ng/dL (0.82-1.77) White Blood Count 7.1th/mm3 (3.8-10.1) Red Blood Count 3.50mil/mm3 (4.40-5.80) Hemoglobin 11.4g/dL (13.8-17.2) Hematocrit 31.6% (41.0-50.0) Mean Corpuscular Volume 90.3fL (81-100) Mean Corpuscular Hemoglobin 32.6pg (27.0-35.0) Mean Corpuscular Hemoglobin Concent 36.1% (32.0-37.0) Red Cell Distribution Width 12.9% (12.3-15.4) Platelet Count 189bil/L (150-400) Neutrophils (%) (Auto) 58.3% (40-74) Lymphocytes (%) (Auto) 29.0% (14-46) Monocytes (%) (Auto) 9.1% (4-12) Eosinophils (%) (Auto) 3.1% (0-5) Basophils (%) (Auto) 0.4% (0-3) Hemoglobin A1c 6.8% (4.8-5.6) Total Bilirubin 0.8mg/dL (0.0-1.2) Aspartate Amino Transf (AST/SGOT) 25U/L (0-50) Alanine Aminotransferase (ALT/SGPT) 22U/L (0-44) Alkaline Phosphatase 49U/L (25-160) Total Protein 6.0g/dL (6.4-8.4) Albumin 3.5g/dL (3.4-5.0) Urine Color Yellow (YELLOW) Urine Appearance Clear (CLEAR,HAZY) Urine pH 6.0 (5.0-8.0) Urine Specific [place] 1.010 (1.003-1.035) Urine Protein 100mg/dL (NEG,TRACE) Urine Glucose (UA) Negativemg/dL (NEGATIVE) Urine Ketones Negativemg/dL (NEGATIVE) Urine Occult Blood Small (NEGATIVE) Urine Nitrite Negative (NEGATIVE) Urine Bilirubin Negative (NEGATIVE) Urine Urobilinogen Normalmg/dL (NORMAL) Urine Leukocyte Esterase Negative (NEGATIVE) Urine RBC 0-2/hpf (0-2) Urine WBC 0-5/hpf (0-5) Urine Epithelial Cells Occasional/hpf (NONE-MOD) Urine Crystals None seen (NONE SEEN) Urine Bacteria Few/hpf (NONE-FEW) Urine Hyaline Casts None/lpf (NONE) Urine Granular Casts None seen (NONE SEEN) Urine Waxy Casts None seen (NONE SEEN) Urine Red Blood Cell Casts None seen (NONE SEEN) Urine White Blood Cell Casts None seen (NONE SEEN) Urine Mucus None seen (None Seen) Urine Trichomonas None seen (NONE SEEN) Urine Yeast None (NONE SEEN) Urine Culture Reflexed Not indicated Troponin T 0.084ug/L (0.0-0.011) Test 01/20/17 03:00 01/21/17 02:00 Triglycerides Level 159mg/dL (0-149) Cholesterol Level 89mg/dL (100-199) LDL Cholesterol, Calculated 31.200mg/dL (0-99) VLDL Cholesterol 31.800mg/dL HDL Cholesterol 26mg/dL (>39) Cholesterol/HDL Ratio 3.42 (0.0-4.4) Sodium Level 142mEq/L (134-144) Potassium Level 3.3mEq/L (3.5-5.2) Chloride Level 100mEq/L (97-108) Carbon Dioxide Level 27mmol/L (18-29) Blood Urea Nitrogen 37mg/dL (8-27) Creatinine 2.21mg/dL (0.76-1.27) Estimat Glomerular Filtration Rate 31mL/min (>59) Glucose Level 183mg/dL (60-99) Calcium Level 9.3mg/dL (8.5-10.1) Discharge Medications Discharge Medications Amlodipine (Amlodipine) 10 Mg Tablet 10 MG PO DAILY Prescribed by: ALEKSANDAR SELLERS MD Amoxicillin (Amoxicillin) 500 Mg Tablet 500 MG PO BID (Reported) Aspirin (Aspirin) 81 Mg Tablet 81 MG PO HS (Reported) Atorvastatin (Lipitor) 40 Mg Tablet 40 MG PO HS (Reported) Calcitriol (Rocaltrol) 0.25 Mcg Capsule 0.25 ORAL Every Other Day (Reported) Carvedilol (Carvedilol) 25 Mg Tablet 25 MG PO BID Prescribed by: ALEKSANDAR SELLERS MD Chlorhexidine Gluconate (Chlorhexidine Gluconate) 118 Ml Liquid 15 ML ORAL TID ( Reported) Cholecalciferol (Vitamin D3) (Vitamin D3) 2,000 Unit Capsule 2,000 UNIT PO DAILY (Reported) Clonidine (Clonidine) 0.2 Mg Tablet 0.2 MG PO BID Prescribed by: ALKESANDAR SELLERS MD Furosemide (Furosemide) 40 Mg Tablet 40 MG PO DAILY (Reported) Glipizide (Glipizide) 5 Mg Tablet 10 MG PO BID (Reported) Ketoconazole (Ketoconazole) 15 Gm Cream..g. Unknown Dose TP PRN (Reported) Lisinopril (Lisinopril) 20 Mg Tablet 20 QPM (Reported) Magnesium Chloride (Slow-Mag) 64 Mg Tablet 64 MG PO DAILY (Reported) Prazosin (Prazosin) 2 Mg Capsule 4 MG PO BID (Reported) As needed Acetaminophen (Acetaminophen) 500 Mg Capsule 500 MG PO Q6H PRN PRN For Pain ( Reported) Clotrimazole (Athlete's Foot) 1 % Cream..g. Unknown Dose TOPICAL PRN PRN PRN Fungus (Reported) Additional med instructions Medications have been adjusted as specified in the medication list. Prescription for amlodipine is sent to your [facility] pharmacy. You have indicated that you have the higher doses of other medicines including clonidine , carvedilol, and lisinopril. Followup Plan Follow-up plan Follow-up with and the [place] clinic at previously scheduled appointments or as needed. Discharge Diet: Diabetic, Other (reduce dietary sodium as much as possible) Discharge Activity: No restrictions Follow-up Provider: Jade Wilson MD Follow-up with PCP in: 2 weeks Provider: Ale Leal MD Follow-up in: 2 weeks Mid-level Provider: Alexis Godoy MD Follow-up with Mid-level in: Other (as needed) Time spent 35 minutes copies to: Ale Leal MD; Alexis Godoy MD; Jade Wilson MD, Jeffrey W MD Jan 21, 2017 11:28
== END 2017-01-21 12:30 | disposition home or self-care (01) | DRG 292 ==
LOC: SED 22:53 → INTOOBSV 01-19 02:44 → OBSVTOIN 01-19 02:44 → PCC 01-19 02:44
PROVIDERS: ADMIT Hospitalist; ATTEND Internal Medicine
DX: I13.0 Hypertensive heart and chronic kidney disease with heart failure and stage 1 through stage 4 chronic kidney disease, or unspecified chronic kidney disease (principal); I50.32 Chronic diastolic (congestive) heart failure; I24.8 Other forms of acute ischemic heart disease; I25.10 Atherosclerotic heart disease of native coronary artery without angina pectoris; N18.3 Chronic kidney disease, stage 3 (moderate); I73.9 Peripheral vascular disease, unspecified; E78.5 Hyperlipidemia, unspecified; E11.9 Type 2 diabetes mellitus without complications; Z79.82 Long term (current) use of aspirin; Z95.1 Presence of aortocoronary bypass graft; Z95.0 Presence of cardiac pacemaker; Z87.891 Personal history of nicotine dependence; Z95.5 Presence of coronary angioplasty implant and graft; Z97.2 Presence of dental prosthetic device (complete) (partial)

== ENCOUNTER → 2017-03-14 | Day surgery (SDC) | payer MEDICARE, OTHER ==
[2017-03-14] VITALS (18 sets, daily range): BP systolic 143–213; BP diastolic 56–71; PULSE 60; RESP 14–16; O2SAT 95–99
[~2017-03-14] MED LIST changes: +0.9% Sodium Chloride 1,000 ML IV PRN; +0.9% Sodium Chloride 1,000 ML IV SCH; +0.9% Sodium Chloride 250 ML IV PRN; +ACET500C49 PO; -AMLO10TA3 PO; +Atropine 1 mg/10 mL (Code) Syringe IVPUSH PRN; +CALC0.257 ORAL; +CARV25TA2 PO; -CLON0.1T PO; +CLON0.2T PO; +CLON0.3T PO; -EPLE25TA3 PO; +Heparin 1,000 Unit/mL 10 mL Inj ONE; +Heparin 1,000 Units/500 mL NS Premix IV ONE; +Heparin 10,000 Unit/1,000 mL NS Premix IV ONE; +KCl 40 mEq/D5W 500 mL 40 MEQ in IV Premix 1 EACH IV ONE; -KEN1C EXT; +KTC2C15 TP; +LISI-567; +Ondansetron 2 mg/mL 2 mL Inj IVPUSH PRN; -ZOLP12.52 PO; +cloNIDine 0.1 mg Tablet PO ONE; +fentaNYL-PF 50 mCg/mL 2 mL Inj ONE; +hydrALAZINE 20 mg/mL Inj ONE
[2017-03-14 06:57] LABS: BASOPHILS % (AUTO) 0.8 % (0-3)
[2017-03-14 06:59] LABS: EOSINOPHILS % (AUTO) 10.1 % (0-5); MONOCYTES % (AUTO) 8.2 % (4-12); Mean Corpuscular Hemoglobin 32.7 pg (27.0-35.0); Mean Corpuscular Volume 84.8 fL (81-100); NEUTROPHILS % (AUTO) 55.4 % (40-74); Platelet Count 223 bil/L (150-400)
--- NOTE | 2017-03-14 07:33 | NUR ---
0730 admit note: Patient ambulates into department with . Their questions are answered. Consent was signed with Shot Blast Equipment Operator. IV's X 2 started and labs are drawn. He is prepped for abd angiogram to review kidney function.
--- NOTE | 2017-03-14 09:45 | DI96 ---
[address] [address] PERIPHERAL CATHETERIZATION/INTERVENTION REPORT PATIENT: VLAD ZALDIVAR : 1935 MR#: [id number] ADMIT: 03/14/2017 JOB ID: [id number] DATE: 03/14/2017 PATIENT PROFILE: The patient is a 81-year-old male with history of severe uncontrolled hypertension, diabetes mellitus, hypercholesterolemia and prior smoking. He underwent coronary artery bypass surgery in 2012 and had a pacemaker implantation in 2015. The patient has severe uncontrolled hypertension despite taking five antihypertensive medications. PROCEDURE: 1. Conscious sedation for 28 minutes. 2. Vascular access from the right groin under ultrasound guidance. 3. Non-selective bilateral renal angiogram. VASCULAR CLOSURE DEVICE: None. COMPLICATIONS: None. METHOD: Conscious sedation was achieved with IV Versed and IV fentanyl. Vascular access was obtained from the right groin under 1% lidocaine local anesthesia using a 4-Yemeni sheath. This was performed under ultrasound guidance. A 4-Yemeni pigtail catheter was then advanced to the abdominal aorta at the T12-L1 level. Nonselective renal angiogram was then performed in the AP view and the JANG view by using CO2 injection. Following sheath removal, hemostasis was achieved by manual compression. The patient tolerated the procedure well. He was transferred to [facility] in good condition. FLUOROSCOPY TIME: 1.1 minutes. RESULTS: 1. The abdominal aorta is heavily calcified. 2. There is no significant stenosis of the renal arteries. MTDD
--- NOTE | 2017-03-14 10:27 | NUR ---
Care assumed Care assumed at 1000. VSS. Denies pain. Slight discomfort with palpation. No bleeding or hematoma at right groin site. Potassium rider infusing per order. at bedside. Continue to monitor per orders.
--- NOTE | 2017-03-14 16:02 | NUR ---
Left forearm and left AC iv's removed intact.Discharge instructions reviewed with patient.He has ambulated to bathroom and back and length of hallway at nurses station. Right groin remains intact, gauze removed earlier and replaced with bandaid. pt discharged ambulatory.
== END | disposition home or self-care (01) ==
LOC: SOUO 00:36
PROVIDERS: ATTEND Internal Medicine Interventional Cardiology
DX: I12.9 Hypertensive chronic kidney disease with stage 1 through stage 4 chronic kidney disease, or unspecified chronic kidney disease (principal); I70.0 Atherosclerosis of aorta; E11.22 Type 2 diabetes mellitus with diabetic chronic kidney disease; N18.3 Chronic kidney disease, stage 3 (moderate); E78.00 Pure hypercholesterolemia, unspecified; G47.33 Obstructive sleep apnea (adult) (pediatric); I25.10 Atherosclerotic heart disease of native coronary artery without angina pectoris; I73.9 Peripheral vascular disease, unspecified; Z95.5 Presence of coronary angioplasty implant and graft; Z95.1 Presence of aortocoronary bypass graft; Z95.0 Presence of cardiac pacemaker; Z87.891 Personal history of nicotine dependence; Z79.84 Long term (current) use of oral hypoglycemic drugs; Z86.73 Personal history of transient ischemic attack (TIA), and cerebral infarction without residual deficits; Z79.82 Long term (current) use of aspirin
CPT/HCPCS: 36200; 36415; 75625; 80048; 85025; 93005; 99152; 99153; C1769; J0360; J1644; J2060; J2250; J3010; Q9967

== ENCOUNTER 2017-03-21 15:19 | Emergency (ER) | payer MEDICARE, OTHER ==
[~2017-03-21] VITALS: Ht 172.7 cm; Wt 100.5 kg
[~2017-03-21 15:19] MED LIST changes: -0.9% Sodium Chloride 1,000 ML IV PRN; -0.9% Sodium Chloride 1,000 ML IV SCH; -0.9% Sodium Chloride 250 ML IV PRN; -Atropine 1 mg/10 mL (Code) Syringe IVPUSH PRN; -CLON0.2T PO; -Heparin 1,000 Unit/mL 10 mL Inj ONE; -Heparin 1,000 Units/500 mL NS Premix IV ONE; -Heparin 10,000 Unit/1,000 mL NS Premix IV ONE; -KCl 40 mEq/D5W 500 mL 40 MEQ in IV Premix 1 EACH IV ONE; -Ondansetron 2 mg/mL 2 mL Inj IVPUSH PRN; -cloNIDine 0.1 mg Tablet PO ONE; -fentaNYL-PF 50 mCg/mL 2 mL Inj ONE; -hydrALAZINE 20 mg/mL Inj ONE
[2017-03-21 15:22] VITALS: BP 196/82; PULSE 65; RESP 18; O2SAT 100
--- NOTE | 2017-03-21 15:35 | ED.REPORT ---
HPI-General Illness Date of Service Mar 21, 2017 ED Provider: Billy Carney MD A 81 year old male with a history of severe uncontrolled hypertension, type II diabetes mellitus and stage III renal failure presents to the ED with persistent soreness and redness to the right suprabubic region that began yesterday. He rates his current pain as a constant 1/10 and his worst pain as a sharp 4/10. The pain does not radiate. Renal angiogram on 03/14 to evaluate his kidneys was reassuring. The area has been healing well without complication. His symptoms have become progressively worse since arrival to the ED. The patient denies any fever, chills, headache, neck stiffness, nausea, vomiting, visual disturbances, earache, rash, upper abdominal pain, chest pain, shortness of breath, recent cough, diarrhea, constipation, dysuria, hematuria, lightheadedness, or numbness/tingling. Patient is not currently anticoagulated. Nursing Notes Stated Complaint: RT GROIN PAIN Chief Complaint: General Complaint Nursing Notes Reviewed: Yes Allergies: Coded Allergies: latex (Verified Allergy, Intermediate, skin burning from latex bandaids, ) morphine (Verified Adverse Reaction, Severe, Nausea,Vomiting,Diarrhea, ) Opioids - Morphine Analogues (Verified Adverse Reaction, Intermediate, Nausea,Vomiting,Diarrhea, 03/14/17) spironolactone (Unverified Adverse Reaction, Mild, Breasts started growing and became painful. , 03/14/17) TAPE (Verified Adverse Reaction, Unknown, 03/14/17) Scheduled Aspirin (Aspirin) 81 Mg Tablet 81 MG PO HS Atorvastatin (Lipitor) 40 Mg Tablet 40 MG PO HS Calcitriol (Rocaltrol) 0.25 Mcg Capsule 0.25 ORAL Every Other Day Carvedilol (Carvedilol) 25 Mg Tablet 25 MG PO BID Cephalexin (Cephalexin) 500 Mg Capsule 500 MG PO QID Cholecalciferol (Vitamin D3) (Vitamin D3) 2,000 Unit Capsule 2,000 UNIT PO DAILY Clonidine (Clonidine) 0.3 Mg Tablet 0.3 MG PO BID Furosemide (Furosemide) 40 Mg Tablet 40 MG PO DAILY Glipizide (Glipizide) 5 Mg Tablet 10 MG PO BID Ketoconazole (Ketoconazole) 15 Gm Cream..g. Unknown Dose TP PRN Lisinopril (Lisinopril) 20 Mg Tablet 30 QPM Magnesium Chloride (Slow-Mag) 64 Mg Tablet 64 MG PO DAILY Prazosin (Prazosin) 2 Mg Capsule 4 MG PO BID Scheduled PRN Acetaminophen (Acetaminophen) 500 Mg Capsule 500 MG PO Q6H PRN PRN For Pain General Time Seen by MD: 15:33 Chief Complaint Other (R inguinal pain) Hx Obtained From: Patient Arrived By: Walk-in Sudden in Onset?: No Onset Occurred: Yesterday Symptom Duration: Since onset Location: : Thigh right Quality: Painful, Sharp Radiation: : Does not radiate Severity: Current: Pain level 1 out of 10 Severity: Maximum: Pain level 4 out of 10 Pertinent Negative: Pt denies other symptoms Recent Healthcare: No recent doctor visit, No recent hospitalization Similar Sx Previous: No Past Medical History Past Medical History 1. Hypertension 2. Diabetes mellitus 3. Stage III renal failure Past Surgical History 1. CABG 2. Orthopedic surgery 3. Pacemaker Smoking History Former Smoker Social History Other Social History: Good social support, , Local resident Ambulatory Status Independent Review of Systems +suprapubic pain and swelling Full Review of Systems Constitutional: Denies: Chills, Fever Eyes: Denies: Visual loss bilateral Ears / Nose / Throat: Denies: Earache bilateral Respiratory: Denies: Non-productive cough, Shortness of breath Cardiovascular: Denies: Chest pain GI: Denies: Abdominal pain, Constipation, Diarrhea, Nausea, Vomiting Male: Denies Dysuria, Denies Hematuria Musculoskeletal: Denies: Neck pain Skin: Denies Rash Neurologic: Denies: Headache, Lightheaded, Numbness, Weakness Complete sys rev & neg: except as marked. Physical Exam Nursing note and vitals reviewed. Constitutional: Well-developed, well-nourished. Not diaphoretic. Head: Normocephalic and atraumatic. Mouth/Throat: Oropharynx is clear and moist. No oropharyngeal exudate. Eyes: EOM are normal. Pupils are equal, round, and reactive to light. Neck: Supple, no tracheal deviation. Cardiovascular: Normal rate, regular rhythm. Equal and intact distal pulses throughout. Pulmonary/Chest: Effort normal and breath sounds normal. No respiratory distress. Abdominal: Soft. No distension. There is no rebound, or guarding. No induration, no fluctuance, no ingunial tenderness. Male : Marked right suprapubic tenderness to palpation. Ecchymosis to right suprapubic region and the shaft of the penis. Musculoskeletal: Range of motion grossly intact, moving all extremities. No edema or tenderness appreciated. Neurological: AOx3. Grossly nonfocal exam. Strength and sensation intact and equal to bilateral upper and lower extremities. Vital Signs Vital Signs Date Time Temp Pulse Resp B/P Pulse Ox O2 Delivery O2 Flow Rate FiO2 03/21/17 23:06 36.8 60 16 185/89 98 Room Air 03/21/17 18:31 68 210/86 03/21/17 18:30 60 20 204/80 99 Room Air 03/21/17 15:22 36.4 65 18 196/82 100 Interpretation & Diagnostics Lab Results Interpretation Result Diagram: 03/21/17 1907 03/21/17 190 Test 03/21/17 19:07 03/21/17 21:20 White Blood Count 7.7th/mm3 (3.8-10.1) Red Blood Count 3.73mil/mm3 (4.40-5.80) Hemoglobin 11.9g/dL (13.8-17.2) Hematocrit 31.9% (41.0-50.0) Mean Corpuscular Volume 85.5fL (81-100) Mean Corpuscular Hemoglobin 31.9pg (27.0-35.0) Mean Corpuscular Hemoglobin Concent 37.3% (32.0-37.0) Red Cell Distribution Width 13.3% (12.3-15.4) Platelet Count 256bil/L (150-400) Neutrophils (%) (Auto) 56.5% (40-74) Lymphocytes (%) (Auto) 25.6% (14-46) Monocytes (%) (Auto) 8.2% (4-12) Eosinophils (%) (Auto) 8.2% (0-5) Basophils (%) (Auto) 1.2% (0-3) Sodium Level 143mEq/L (134-144) Potassium Level 2.8mEq/L (3.5-5.2) Chloride Level 102mEq/L (97-108) Carbon Dioxide Level 27mmol/L (18-29) Blood Urea Nitrogen 29mg/dL (8-27) Creatinine 2.41mg/dL (0.76-1.27) Estimat Glomerular Filtration Rate 28mL/min (>59) Glucose Level 139mg/dL (60-99) Calcium Level 9.5mg/dL (8.5-10.1) Magnesium Level 1.9mg/dL (1.6-2.6) Total Bilirubin 0.8mg/dL (0.0-1.2) Aspartate Amino Transf (AST/SGOT) 20U/L (0-50) Alanine Aminotransferase (ALT/SGPT) 28U/L (0-44) Alkaline Phosphatase 81U/L (25-160) Total Protein 6.4g/dL (6.4-8.4) Albumin 3.8g/dL (3.4-5.0) Lactic Acid Level 0.8mmol/L (0.4-2.0) ECG Interpretation ECG Interpretation: Normal sinus rhythm rate 60 bpm inferior infarct, old unchanged from prior (03/14/17) Time: 22:54 Interpreted by: ED physician CT Abd / Pelvis Interpretation IMPRESSION: Overall, no acute abnormality. Normal appendix. 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 Incidental colonic diverticulosis. Low-grade, subcutaneous cellulitis in the anterior abdominal wall. No focal fluid collection or hematoma. Dictated by: Alexander Dangelo M.D. on 03/21/2017 at 19:45 Study type: Abdominal CT no contrast Interpretation / Wet Read by: Interpret - Radiologist Re-Eval/Medical Decision Med Decision/Clinical Course 81-year-old male presenting to the ED for evaluation of right groin/suprapubic ecchymosis and pain after having undergone a catheterization in the right inguinal region to evaluate for renal artery stenosis approximately one week ago. Differential includes intrapelvic/intra-abdominal hematoma, wound infection, necrotizing infection of the skin and soft tissue, etc. Upon arrival to the ED, he is afebrile, nontoxic appearing. No evidence of any necrotizing infections externally to inspection. I discussed the patient with Dr. Jimenez; he states that if the patient's CT scan does not demonstrate any evidence of hematoma or other new concerning findings related to this, he can be discharged home and follow-up in clinic on Friday with him. Laboratory studies drawn, notable for a potassium of 2.8, creatinine of 2.41 (stable from previous), hemoglobin 11.9 (stable from previous), lactic acid 0.8, normal magnesium. EKG demonstrates normal sinus rhythm with no significant changes associated with hypokalemia. His potassium here in the emergency department was repleted. CT scan shows no acute abnormalities aside from some low-grade, subcutaneous cellulitis in the anterior abdominal wall. I reviewed this with Dr. Mckeon, who stated that he did not feel that this likely represented a necrotizing infection or other high-risk diagnosis at this time. However, the patient will be started on Keflex in the interim and will follow up with both his PCP and Dr. Jimenez. Very careful return precautions were discussed, and the patient was discharged. Patient agreeable to the plan as stated, no further questions. Time of Eval: 22:54 Patient Status: Condition improved Re-Evaluation/Progress Note: Upon recheck, the patient's symptoms have improved. She is informed of her results and the intended treatment plan. All questions are addressed at this time and she is agreeable to the current plan. Consultation #1: Referral / Consult Name: Pily Bird MD Consulted With: Cardiology Requested Call at: 18:58 Telephone Messenger: Agrees with eval, Agrees with plan Note: Discussed patient presentation. Recommends CT without contrast. Consultation #2: Referral / Consult Name: Karan Mckeon MD Consulted With: Surgeon Call Returned at: 21:26 Telephone Messenger: Agrees with eval, Agrees with plan Note: Discussed patient condition and CT scan. Counseled Regarding: Diagnosis, Lab results, Need for follow-up, When/why to return to ED Discharge & Departure Primary Impression: Hypokalemia Additional Impressions: Superficial bruising of abdominal wall Cellulitis Site of cellulitis: trunk Site of cellulitis of trunk: groin Qualified Code : L03.314 - Cellulitis of groin Disposition: Home Discharge Condition All VS Reviewed: Yes Condition: Improved Patient Instructions: Cellulitis (ED), Ecchymosis (ED), Hypokalemia (ED) Additional Instructions: Thank you for allowing us to be a part of your care in the ED today. Your emergency department results, including CT scan and labs, are generally reassuring. I do not think that there is an emergent cause for your symptoms today that would require admission to the hospital; however, as discussed, your potassium was low again and you may have a infection of the abdominal wall. Please take the antibiotics as prescribed and follow-up with Dr. Jimenez on Friday, as well as your primary care doctor. Please return to the emergency department for any new or worsening symptoms including any nausea, vomiting, rash, abdominal pain, shortness of breath, chest pain, one sided weakness/numbness, fevers, or chills, or if there's anything else of concern to you. Referrals: Alexis Godoy MD (PCP) Pily Bird MD Attestation Portions of this note were transcribed by Tyesha Kowalski. Dr. Rommel Waters personally performed the history, physical exam and medical decision-making; I reviewed and confirmed the accuracy of the information in the transcribed note. Signed by Iam Joiner, 03/21/17. copies to: Alexis Godoy MD, William B MD Mar 21, 2017 15:35 [facility] Mar 21, 2017 16:02 chest pain, one sided weakness/numbness, fevers, or chills, or if there's anything else of concern to you. Referrals: Alexis Godoy MD (PCP) Pily Bird MD Attestation Portions of this note were transcribed by Tyesha Kowalski. Dr. Rommel Waters personally performed the history, physical exam and medical decision-making; I reviewed and confirmed the accuracy of the information in the transcribed note. Signed by Iam Joiner, 03/21/17. copies to: Alexis Godoy MD, William B MD Mar 21, 2017 15:35 [facility] Mar 21, 2017 16:02
[2017-03-21 18:30] VITALS: BP 204/80; PULSE 60; RESP 20; O2SAT 99
[2017-03-21 18:31] VITALS: BP 210/86; PULSE 68
--- NOTE | 2017-03-21 19:58 | DRSVH ---
PROCEDURE: CT ABDOMEN AND PELVIS WITHOUT CONTRAST ([id number]) INDICATIONS: suprapubic pain, ecchymosis s/p cath; ?hematoma TECHNIQUE: Noncontrast 5 mm thick sections acquired from the diaphragms to the symphysis. 5 mm coronal and sagi ttal reformats were then performed. For radiation dose reduction, the following was used: automated exposure control, adjustment of mA and/or kV according to patient size. COMPARISON: None. FINDINGS: Image quality: Excellent. ABDOMEN: Lung bases: Lung bases are clear. Heart size is normal. Solid organs: Liver and spleen are normal in size. Gallbladder surgically absent. Pancreas is norm al in contours. No adrenal nodules. Kidneys are normal in size, without hydronephrosis or nephrolit hiasis. Peritoneum and bowel: Unenhanced bowel loops demonstrate normal wall thickness and caliber. No free fluid or air. Appendix normal. There are scattered colonic diverticula without evidence of acute in flammation. Nodes and vessels: No retroperitoneal or mesenteric adenopathy by size criteria. Aorta and inferior vena cava are normal in caliber. Incidental retroaortic left renal vein Miscellaneous: No ventral hernias. There is mild subcutaneous edema in the anterior abdominal wall above the umbilicus PELVIS: Genitourinary: Bladder wall thickness is normal. 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 Mild enlargement of the prostate Miscellaneous: Small bilateral fat containing inguinal hernias. No pelvic adenopathy. Bones: No suspicious bony lesions. No vertebral body compression fractures. IMPRESSION: Overall, no acute abnormality. Normal appendix. 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 Incidental colonic diverticulosis. Low-grade, subcutaneous cellulitis in the anterior abdominal wall. No focal fluid collection or hemat timmy. Dictated by: Alexander Dangelo M.D. on 03/21/2017 at 19:45 Approved by: Alexander Dangelo M.D. on 03/21/2017 at 19:56
[2017-03-21 21:37] LABS: BASOPHILS % (AUTO) 1.2 % (0-3); EOSINOPHILS % (AUTO) 8.2 % (0-5); MONOCYTES % (AUTO) 8.2 % (4-12); Mean Corpuscular Hemoglobin 31.9 pg (27.0-35.0); Mean Corpuscular Volume 85.5 fL (81-100); NEUTROPHILS % (AUTO) 56.5 % (40-74); Platelet Count 256 bil/L (150-400)
[2017-03-21] MEDS ORDERED: Potassium Chloride 20 mEq/15 mL 15mL Oral Soln PO ONE (22:25)
[2017-03-21] MEDS ORDERED: CEPH500C PO (22:46)
[2017-03-21 23:06] VITALS: BP 185/89; PULSE 60; RESP 16; O2SAT 98
== END 2017-03-21 22:52 | disposition home or self-care (01) ==
LOC: SED 15:19
DX: E87.6 Hypokalemia (principal); Y84.8 Other medical procedures as the cause of abnormal reaction of the patient, or of later complication, without mention of misadventure at the time of the procedure; Y93.89 Activity, other specified; Y92.89 Other specified places as the place of occurrence of the external cause; Y99.8 Other external cause status; L03.314 Cellulitis of groin; S30.1XXA Contusion of abdominal wall, initial encounter; I10 Essential (primary) hypertension; E11.29 Type 2 diabetes mellitus with other diabetic kidney complication; N18.3 Chronic kidney disease, stage 3 (moderate); Z95.1 Presence of aortocoronary bypass graft; Z98.890 Other specified postprocedural states; Z95.0 Presence of cardiac pacemaker; Z87.891 Personal history of nicotine dependence; Z79.82 Long term (current) use of aspirin; Z88.5 Allergy status to narcotic agent; Z88.8 Allergy status to other drugs, medicaments and biological substances